=== PATIENT | male | born 1955 | race African-American/Black ===

== ENCOUNTER 2019-03-14 13:28 | Inpatient (IN) | payer OTHER ==
[2019-03-14 15:03] VITALS: BMI 41.5
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
[2019-03-14] MEDS ORDERED: P-EPHED 60MG/TRIPROLIDI 2.5MG TABLET PO PRN (17:57)
[2019-03-14] MEDS ORDERED: MENTHOL/PHENOL 1 EACH UD MM PRN (17:57)
[2019-03-14] MEDS ORDERED: ALBUTEROL SO4 0.083% IH SOL 2.5 MG/3 ML VIAL.NEB. NEB PRN (17:57)
[2019-03-14] MEDS ORDERED: NICOTINE POLACRILEX 2 MG GUM BC PRN (17:57)
[2019-03-14] MEDS ORDERED: MAGNESIUM HYDROX 2400MG/30ML ORAL SUSPENSION 30 ML CUP PO PRN (17:57)
[2019-03-14] MEDS ORDERED: guaiFENesin 200 MG/10 ML 10 ML UNIT-DOSE CUPS PO PRN (17:57)
[2019-03-14] MEDS ORDERED: MAG HYDROX/AL HYDROX/SIMETH 30 ML UNIT-DOSE CUP PO PRN (17:57)
[2019-03-14] MEDS: MONTELUKAST NA 10 MG TABLET PO SCH (21:03)
[2019-03-14] MEDS: CARVEDILOL 3.125 MG TABLET (FP) PO SCH (21:03)
[2019-03-14] MEDS: BUDESONIDE/FORMETEROL FUMARATE 160/4.5 mcg INHALER IH SCH (21:03)
[2019-03-14] MEDS: THIAMINE HCL 100 MG TABLET (FP) PO SCH (21:03)
[2019-03-14] MEDS: ROSUVASTATIN CA 10 MG TABLET (FP) PO SCH (21:04)
[2019-03-14] MEDS: ACETAMINOPHEN 325 MG TABLET (FP) PO PRN (21:05)
[2019-03-14] MEDS ORDERED: MELATONIN 5 MG TABLETS PO PRN (22:00)
[2019-03-14] MEDS ORDERED: ATORVASTATIN CA 40 MG TABLET (FP) PO SCH (22:00)
[2019-03-15] MEDS: LEVOTHYROXINE 200 MCG, LEVOTHYROXINE 50 MCG PO SCH (06:26)
[2019-03-15] MEDS: IBUPROFEN 400 MG TABLET (FP) PO PRN ×2 (06:27→21:02)
[2019-03-15] MEDS ORDERED: LEVOTHYROXINE NA 25 MCG TABLET (FP) PO SCH (07:00)
[2019-03-15] MEDS: PANTOPRAZOLE 40 MG TABLET (FP) PO SCH (09:55)
[2019-03-15] MEDS: amLODIPine BESYLATE 5 MG TABLET (FP) PO SCH (09:55)
[2019-03-15] MEDS: PRENATAL VITAMINS W/ FOLIC ACID TABLET (FP) PO SCH (09:55)
[2019-03-15] MEDS: FUROSEMIDE 40 MG TABLET (FP) PO SCH (09:55)
[2019-03-15] MEDS: BUDESONIDE/FORMETEROL FUMARATE 160/4.5 mcg INHALER IH SCH ×2 (09:55→21:01)
[2019-03-15] MEDS: CARVEDILOL 3.125 MG TABLET (FP) PO SCH ×2 (09:55→21:02)
[2019-03-15] MEDS: ASPIRIN COATED 81 MG TABLET.EC PO SCH (09:55)
[2019-03-15] MEDS: ALLOPURINOL 100 MG TABLET (FP) PO SCH (09:58)
[2019-03-15 10:33] LABS: HEMATOCRIT 37.7 % (35.4-49); HEMOGLOBIN 12.4 GM/dL (11.7-16.9); MCH 28.8 pg (25.7-33.7); MCHC 32.9 g/dl (32.0-35.9); MEAN CELL VOLUME 87.5 fl (80-96); MEAN PLT VOLUME 8.3 fl (7.5-11.1); PLATELET COUNT 280 K/MM3 (134-434); RBC 4.31 M/mm3 (4.00-5.60); RDW 15.5 % (11.9-15.9); WHITE BLOOD COUNT 11.1 K/mm3 (4.0-10.0)
[2019-03-15 10:37] LABS: ALBUMIN 3.5 g/dl (3.4-5.0); BILIRUBIN,TOTAL 0.4 mg/dL (0.2-1); CALCIUM 9.5 mg/dL (8.5-10.1); CREATININE 1.2 mg/dL (0.55-1.3); POTASSIUM 5.2 mmol/L (3.5-5.1); TOT PROT 7.2 g/dl (6.4-8.2)
[2019-03-15] MEDS: FOLIC ACID 1 MG TABLET (FP) PO SCH (10:41)
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
[2019-03-15] MEDS: MONTELUKAST NA 10 MG TABLET PO SCH (21:01)
[2019-03-15] MEDS: THIAMINE HCL 100 MG TABLET (FP) PO SCH (21:01)
[2019-03-15] MEDS: ROSUVASTATIN CA 10 MG TABLET (FP) PO SCH (21:01)
[2019-03-16] MEDS: LEVOTHYROXINE 200 MCG, LEVOTHYROXINE 50 MCG PO SCH (06:22)
[2019-03-16] MEDS: IBUPROFEN 400 MG TABLET (FP) PO PRN ×2 (06:23→21:03)
[2019-03-16] MEDS: amLODIPine BESYLATE 5 MG TABLET (FP) PO SCH (09:42)
[2019-03-16] MEDS: PANTOPRAZOLE 40 MG TABLET (FP) PO SCH (09:42)
[2019-03-16] MEDS: CARVEDILOL 3.125 MG TABLET (FP) PO SCH ×2 (09:42→21:02)
[2019-03-16] MEDS: ALLOPURINOL 100 MG TABLET (FP) PO SCH (09:42)
[2019-03-16] MEDS: BUDESONIDE/FORMETEROL FUMARATE 160/4.5 mcg INHALER IH SCH ×2 (09:42→21:03)
[2019-03-16] MEDS: PRENATAL VITAMINS W/ FOLIC ACID TABLET (FP) PO SCH (09:42)
[2019-03-16] MEDS: FOLIC ACID 1 MG TABLET (FP) PO SCH (09:42)
[2019-03-16] MEDS: ASPIRIN COATED 81 MG TABLET.EC PO SCH (09:42)
[2019-03-16] MEDS: FUROSEMIDE 40 MG TABLET (FP) PO SCH (09:42)
[2019-03-16] MEDS: THIAMINE HCL 100 MG TABLET (FP) PO SCH (21:02)
[2019-03-16] MEDS: MONTELUKAST NA 10 MG TABLET PO SCH (21:02)
[2019-03-16] MEDS: ROSUVASTATIN CA 10 MG TABLET (FP) PO SCH (21:02)
[2019-03-17] MEDS: IBUPROFEN 400 MG TABLET (FP) PO PRN ×2 (06:02→21:11)
[2019-03-17] MEDS: LEVOTHYROXINE 200 MCG, LEVOTHYROXINE 50 MCG PO SCH (06:03)
[2019-03-17] MEDS: amLODIPine BESYLATE 5 MG TABLET (FP) PO SCH (10:01)
[2019-03-17] MEDS: CARVEDILOL 3.125 MG TABLET (FP) PO SCH ×2 (10:01→21:11)
[2019-03-17] MEDS: ASPIRIN COATED 81 MG TABLET.EC PO SCH (10:01)
[2019-03-17] MEDS: ALLOPURINOL 100 MG TABLET (FP) PO SCH (10:01)
[2019-03-17] MEDS: FOLIC ACID 1 MG TABLET (FP) PO SCH (10:01)
[2019-03-17] MEDS: PANTOPRAZOLE 40 MG TABLET (FP) PO SCH (10:01)
[2019-03-17] MEDS: PRENATAL VITAMINS W/ FOLIC ACID TABLET (FP) PO SCH (10:01)
[2019-03-17] MEDS: BUDESONIDE/FORMETEROL FUMARATE 160/4.5 mcg INHALER IH SCH ×2 (10:01→21:13)
[2019-03-17] MEDS: FUROSEMIDE 40 MG TABLET (FP) PO SCH (10:01)
[2019-03-17] MEDS: THIAMINE HCL 100 MG TABLET (FP) PO SCH (21:10)
[2019-03-17] MEDS: ROSUVASTATIN CA 10 MG TABLET (FP) PO SCH (21:12)
[2019-03-17] MEDS: MONTELUKAST NA 10 MG TABLET PO SCH (21:12)
[2019-03-18] MEDS: LEVOTHYROXINE 200 MCG, LEVOTHYROXINE 50 MCG PO SCH (07:39)
[2019-03-18] MEDS: IBUPROFEN 400 MG TABLET (FP) PO PRN ×2 (07:39→21:06)
[2019-03-18] MEDS: BUDESONIDE/FORMETEROL FUMARATE 160/4.5 mcg INHALER IH SCH ×2 (09:47→21:08)
[2019-03-18] MEDS: ALBUTEROL SO4 8 GM HFA INHALER IH PRN (09:48)
[2019-03-18] MEDS: PANTOPRAZOLE 40 MG TABLET (FP) PO SCH (09:49)
[2019-03-18] MEDS: amLODIPine BESYLATE 5 MG TABLET (FP) PO SCH (09:49)
[2019-03-18] MEDS: FUROSEMIDE 40 MG TABLET (FP) PO SCH (09:49)
[2019-03-18] MEDS: CARVEDILOL 3.125 MG TABLET (FP) PO SCH ×2 (09:49→21:06)
[2019-03-18] MEDS: ALLOPURINOL 100 MG TABLET (FP) PO SCH (09:49)
[2019-03-18] MEDS: ASPIRIN COATED 81 MG TABLET.EC PO SCH (09:49)
[2019-03-18] MEDS: PRENATAL VITAMINS W/ FOLIC ACID TABLET (FP) PO SCH (09:49)
[2019-03-18] MEDS: FOLIC ACID 1 MG TABLET (FP) PO SCH (09:50)
[2019-03-18] MEDS: THIAMINE HCL 100 MG TABLET (FP) PO SCH (21:06)
[2019-03-18] MEDS: MONTELUKAST NA 10 MG TABLET PO SCH (21:06)
[2019-03-18] MEDS: ROSUVASTATIN CA 10 MG TABLET (FP) PO SCH (21:06)
[2019-03-19] MEDS: LEVOTHYROXINE 200 MCG, LEVOTHYROXINE 50 MCG PO SCH (06:36)
[2019-03-19] MEDS: IBUPROFEN 400 MG TABLET (FP) PO PRN ×2 (06:36→21:06)
[2019-03-19] MEDS: PANTOPRAZOLE 40 MG TABLET (FP) PO SCH (09:43)
[2019-03-19] MEDS: ALLOPURINOL 100 MG TABLET (FP) PO SCH (09:43)
[2019-03-19] MEDS: CARVEDILOL 3.125 MG TABLET (FP) PO SCH ×2 (09:43→21:05)
[2019-03-19] MEDS: BUDESONIDE/FORMETEROL FUMARATE 160/4.5 mcg INHALER IH SCH ×2 (09:43→21:06)
[2019-03-19] MEDS: FUROSEMIDE 40 MG TABLET (FP) PO SCH (09:43)
[2019-03-19] MEDS: amLODIPine BESYLATE 5 MG TABLET (FP) PO SCH (09:43)
[2019-03-19] MEDS: ASPIRIN COATED 81 MG TABLET.EC PO SCH (09:43)
[2019-03-19] MEDS: PRENATAL VITAMINS W/ FOLIC ACID TABLET (FP) PO SCH (09:44)
[2019-03-19] MEDS: FOLIC ACID 1 MG TABLET (FP) PO SCH (09:46)
[2019-03-19] MEDS: ROSUVASTATIN CA 10 MG TABLET (FP) PO SCH (21:05)
[2019-03-19] MEDS: MONTELUKAST NA 10 MG TABLET PO SCH (21:05)
[2019-03-19] MEDS: THIAMINE HCL 100 MG TABLET (FP) PO SCH (21:05)
[2019-03-19] MEDS: ALBUTEROL SO4 8 GM HFA INHALER IH PRN (21:06)
[2019-03-20] MEDS: IBUPROFEN 400 MG TABLET (FP) PO PRN ×2 (06:18→21:02)
[2019-03-20] MEDS: LEVOTHYROXINE 200 MCG, LEVOTHYROXINE 50 MCG PO SCH (06:18)
[2019-03-20] MEDS ORDERED: ALBUTEROL SO4 0.083% IH SOL 2.5 MG/3 ML VIAL.NEB. NEB PRN (08:56)
[2019-03-20] MEDS: ASPIRIN COATED 81 MG TABLET.EC PO SCH (09:43)
[2019-03-20] MEDS: PRENATAL VITAMINS W/ FOLIC ACID TABLET (FP) PO SCH (09:44)
[2019-03-20] MEDS: amLODIPine BESYLATE 5 MG TABLET (FP) PO SCH (09:44)
[2019-03-20] MEDS: CARVEDILOL 3.125 MG TABLET (FP) PO SCH ×2 (09:44→21:00)
[2019-03-20] MEDS: FUROSEMIDE 40 MG TABLET (FP) PO SCH (09:44)
[2019-03-20] MEDS: ALLOPURINOL 100 MG TABLET (FP) PO SCH (09:44)
[2019-03-20] MEDS: PANTOPRAZOLE 40 MG TABLET (FP) PO SCH (09:44)
[2019-03-20] MEDS: BUDESONIDE/FORMETEROL FUMARATE 160/4.5 mcg INHALER IH SCH ×2 (09:45→21:00)
[2019-03-20] MEDS: FOLIC ACID 1 MG TABLET (FP) PO SCH (09:46)
[2019-03-20] MEDS: ROSUVASTATIN CA 10 MG TABLET (FP) PO SCH (21:00)
[2019-03-20] MEDS: THIAMINE HCL 100 MG TABLET (FP) PO SCH (21:00)
[2019-03-20] MEDS: MONTELUKAST NA 10 MG TABLET PO SCH (21:00)
[2019-03-21] MEDS: LEVOTHYROXINE 200 MCG, LEVOTHYROXINE 50 MCG PO SCH (06:03)
[2019-03-21] MEDS: IBUPROFEN 400 MG TABLET (FP) PO PRN (06:03)
[2019-03-21] MEDS: FOLIC ACID 1 MG TABLET (FP) PO SCH (10:05)
[2019-03-21] MEDS: ALLOPURINOL 100 MG TABLET (FP) PO SCH (10:05)
[2019-03-21] MEDS: BUDESONIDE/FORMETEROL FUMARATE 160/4.5 mcg INHALER IH SCH ×2 (10:05→21:01)
[2019-03-21] MEDS: CARVEDILOL 3.125 MG TABLET (FP) PO SCH ×2 (10:05→21:01)
[2019-03-21] MEDS: PRENATAL VITAMINS W/ FOLIC ACID TABLET (FP) PO SCH (10:05)
[2019-03-21] MEDS: ASPIRIN COATED 81 MG TABLET.EC PO SCH (10:05)
[2019-03-21] MEDS: PANTOPRAZOLE 40 MG TABLET (FP) PO SCH (10:05)
[2019-03-21] MEDS: FUROSEMIDE 40 MG TABLET (FP) PO SCH (10:05)
[2019-03-21] MEDS: amLODIPine BESYLATE 5 MG TABLET (FP) PO SCH (10:05)
--- NOTE | 2019-03-21 13:31 | PN ---
S Progress Note Note: C/O HIP PAIN AND LEG SWELLING. Vital Signs 03/21/19 03/21/19 07:11 10:00 Temperature 98.2 F Pulse Rate 81 79 Respiratory 17 Rate Blood Pressure 127/66 Laboratory Tests 03/15/19 03/15/19 03/15/19 07:30 07:30 07:30 WBC 11.1 H RBC 4.31 Hgb 12.4 Hct 37.7 MCV 87.5 MCH 28.8 MCHC 32.9 RDW 15.5 Plt Count 280 MPV 8.3 Sodium 137 Potassium 5.2 H Chloride 102 Carbon Dioxide 31 Anion Gap 4 L BUN 32 H Creatinine 1.2 Est GFR (CKD-EPI)AfAm 74.14 Est GFR (CKD-EPI)NonAf 63.97 Random Glucose 108 H Calcium 9.5 Total Bilirubin 0.4 AST 45 H ALT 117 H Alkaline Phosphatase 107 Total Protein 7.2 Albumin 3.5 RPR Titer Nonreactive BILATERAL PITTING EDEMA A:CHRONIC LBP HX HIP SX VARICOSE VEINS LEFT LOWER LEG HYPER AND HYPOPIGMENTATION OF LEFT LOWER EXTREMITY BILATERAL LOWER EXTREMITY VENOUS STASIS PLAN: LIDOCAINE PATCH 2% APPLY DIRECTED TO LEFT AND RIGHT HIPS. ELEVATE BOTH LEGS WHILE IN BED
[2019-03-21] MEDS: ACETAMINOPHEN 325 MG TABLET (FP) PO PRN ×2 (14:22→21:02)
[2019-03-21] MEDS: LIDOCAINE 5% TOPICAL PATCH TP SCH (14:22)
[2019-03-21] MEDS ORDERED: LIDOCAINE 5% TOPICAL PATCH TP ONE (14:47)
[2019-03-21] MEDS: THIAMINE HCL 100 MG TABLET (FP) PO SCH (21:01)
[2019-03-21] MEDS: ROSUVASTATIN CA 10 MG TABLET (FP) PO SCH (21:01)
[2019-03-21] MEDS: MONTELUKAST NA 10 MG TABLET PO SCH (21:01)
[2019-03-21] MEDS: ALBUTEROL SO4 8 GM HFA INHALER IH PRN (21:01)
[2019-03-21] MEDS ORDERED: LIDOCAINE PATCH REMOVAL MC ONE ×2 (22:00)
[2019-03-22] MEDS: LEVOTHYROXINE 200 MCG, LEVOTHYROXINE 50 MCG PO SCH (06:02)
[2019-03-22] MEDS: ACETAMINOPHEN 325 MG TABLET (FP) PO PRN (06:03)
[2019-03-22] MEDS: amLODIPine BESYLATE 5 MG TABLET (FP) PO SCH (09:33)
[2019-03-22] MEDS: PRENATAL VITAMINS W/ FOLIC ACID TABLET (FP) PO SCH (09:33)
[2019-03-22] MEDS: FOLIC ACID 1 MG TABLET (FP) PO SCH (09:33)
[2019-03-22] MEDS: ALLOPURINOL 100 MG TABLET (FP) PO SCH (09:33)
[2019-03-22] MEDS: FUROSEMIDE 40 MG TABLET (FP) PO SCH (09:33)
[2019-03-22] MEDS: ASPIRIN COATED 81 MG TABLET.EC PO SCH (09:33)
[2019-03-22] MEDS: PANTOPRAZOLE 40 MG TABLET (FP) PO SCH (09:33)
[2019-03-22] MEDS: CARVEDILOL 3.125 MG TABLET (FP) PO SCH ×2 (09:33→21:04)
[2019-03-22] MEDS: BUDESONIDE/FORMETEROL FUMARATE 160/4.5 mcg INHALER IH SCH ×2 (09:34→21:05)
[2019-03-22] MEDS: LIDOCAINE 5% TOPICAL PATCH TP SCH ×2 (09:35)
[2019-03-22] MEDS: THIAMINE HCL 100 MG TABLET (FP) PO SCH (21:04)
[2019-03-22] MEDS: MONTELUKAST NA 10 MG TABLET PO SCH (21:04)
[2019-03-22] MEDS: ROSUVASTATIN CA 10 MG TABLET (FP) PO SCH (21:04)
[2019-03-22] MEDS: IBUPROFEN 400 MG TABLET (FP) PO PRN (21:04)
[2019-03-22] MEDS: LIDOCAINE PATCH REMOVAL MC SCH (21:06)
[2019-03-22] MEDS: ALBUTEROL SO4 8 GM HFA INHALER IH PRN (21:06)
[2019-03-23] MEDS: LEVOTHYROXINE 200 MCG, LEVOTHYROXINE 50 MCG PO SCH (06:17)
[2019-03-23] MEDS: ACETAMINOPHEN 325 MG TABLET (FP) PO PRN (06:17)
[2019-03-23] MEDS: amLODIPine BESYLATE 5 MG TABLET (FP) PO SCH (10:01)
[2019-03-23] MEDS: FUROSEMIDE 40 MG TABLET (FP) PO SCH (10:01)
[2019-03-23] MEDS: BUDESONIDE/FORMETEROL FUMARATE 160/4.5 mcg INHALER IH SCH ×2 (10:01→21:01)
[2019-03-23] MEDS: ALLOPURINOL 100 MG TABLET (FP) PO SCH (10:01)
[2019-03-23] MEDS: CARVEDILOL 3.125 MG TABLET (FP) PO SCH ×2 (10:01→21:01)
[2019-03-23] MEDS: PANTOPRAZOLE 40 MG TABLET (FP) PO SCH (10:02)
[2019-03-23] MEDS: FOLIC ACID 1 MG TABLET (FP) PO SCH (10:02)
[2019-03-23] MEDS: ASPIRIN COATED 81 MG TABLET.EC PO SCH (10:02)
[2019-03-23] MEDS: PRENATAL VITAMINS W/ FOLIC ACID TABLET (FP) PO SCH (10:02)
[2019-03-23] MEDS: LIDOCAINE 5% TOPICAL PATCH TP SCH ×2 (10:02→10:03)
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
[2019-03-23] MEDS: ROSUVASTATIN CA 10 MG TABLET (FP) PO SCH (21:01)
[2019-03-23] MEDS: MONTELUKAST NA 10 MG TABLET PO SCH (21:01)
[2019-03-23] MEDS: THIAMINE HCL 100 MG TABLET (FP) PO SCH (21:01)
[2019-03-23] MEDS: LIDOCAINE PATCH REMOVAL MC SCH (21:02)
[2019-03-23] MEDS: IBUPROFEN 400 MG TABLET (FP) PO PRN (21:03)
[2019-03-24] MEDS: IBUPROFEN 400 MG TABLET (FP) PO PRN (05:59)
[2019-03-24] MEDS: LEVOTHYROXINE 200 MCG, LEVOTHYROXINE 50 MCG PO SCH (06:00)
[2019-03-24] MEDS: ALLOPURINOL 100 MG TABLET (FP) PO SCH (09:35)
[2019-03-24] MEDS: FUROSEMIDE 40 MG TABLET (FP) PO SCH (09:39)
[2019-03-24] MEDS: ASPIRIN COATED 81 MG TABLET.EC PO SCH (09:39)
[2019-03-24] MEDS: CARVEDILOL 3.125 MG TABLET (FP) PO SCH ×2 (09:39→22:20)
[2019-03-24] MEDS: PRENATAL VITAMINS W/ FOLIC ACID TABLET (FP) PO SCH (09:39)
[2019-03-24] MEDS: PANTOPRAZOLE 40 MG TABLET (FP) PO SCH (09:40)
[2019-03-24] MEDS: LIDOCAINE 5% TOPICAL PATCH TP SCH ×2 (09:41→10:48)
[2019-03-24] MEDS: FOLIC ACID 1 MG TABLET (FP) PO SCH (09:42)
[2019-03-24] MEDS: SERTRALINE HCL 25 MG TABLET (FP) PO SCH (09:46)
[2019-03-24] MEDS: amLODIPine BESYLATE 5 MG TABLET (FP) PO SCH (10:49)
[2019-03-24] MEDS: BUDESONIDE/FORMETEROL FUMARATE 160/4.5 mcg INHALER IH SCH ×2 (10:49→22:21)
[2019-03-24] MEDS ORDERED: ALBUTEROL SO4 0.083% IH SOL 2.5 MG/3 ML VIAL.NEB. NEB PRN (13:24)
[2019-03-24] MEDS: MONTELUKAST NA 10 MG TABLET PO SCH (22:21)
[2019-03-24] MEDS: THIAMINE HCL 100 MG TABLET (FP) PO SCH (22:21)
[2019-03-24] MEDS: ROSUVASTATIN CA 10 MG TABLET (FP) PO SCH (22:21)
[2019-03-24] MEDS: LIDOCAINE PATCH REMOVAL MC SCH (22:21)
[2019-03-25] MEDS: IBUPROFEN 400 MG TABLET (FP) PO PRN ×2 (01:41→21:10)
[2019-03-25] MEDS: hydrOXYzine PAMOATE 25 MG CAPSULE (FP) PO PRN (01:41)
[2019-03-25] MEDS ORDERED: LEVOTHYROXINE NA 100 MCG TABLET (FP) ONE (06:52)
[2019-03-25] MEDS ORDERED: LEVOTHYROXINE NA 25 MCG TABLET (FP) ONE (06:52)
[2019-03-25] MEDS: LEVOTHYROXINE 200 MCG, LEVOTHYROXINE 50 MCG PO SCH (06:57)
[2019-03-25] MEDS: ASPIRIN COATED 81 MG TABLET.EC PO SCH (09:44)
[2019-03-25] MEDS: amLODIPine BESYLATE 5 MG TABLET (FP) PO SCH (09:44)
[2019-03-25] MEDS: CARVEDILOL 3.125 MG TABLET (FP) PO SCH ×2 (09:44→21:09)
[2019-03-25] MEDS: BUDESONIDE/FORMETEROL FUMARATE 160/4.5 mcg INHALER IH SCH ×2 (09:44→21:09)
[2019-03-25] MEDS: PANTOPRAZOLE 40 MG TABLET (FP) PO SCH (09:44)
[2019-03-25] MEDS: SERTRALINE HCL 25 MG TABLET (FP) PO SCH (09:44)
[2019-03-25] MEDS: FUROSEMIDE 40 MG TABLET (FP) PO SCH (09:44)
[2019-03-25] MEDS: PRENATAL VITAMINS W/ FOLIC ACID TABLET (FP) PO SCH (09:44)
[2019-03-25] MEDS: FOLIC ACID 1 MG TABLET (FP) PO SCH (09:45)
[2019-03-25] MEDS: ALLOPURINOL 100 MG TABLET (FP) PO SCH (09:45)
[2019-03-25] MEDS: ACETAMINOPHEN 325 MG TABLET (FP) PO PRN (09:46)
[2019-03-25] MEDS: LIDOCAINE 5% TOPICAL PATCH TP SCH ×2 (09:48)
[2019-03-25] MEDS: MONTELUKAST NA 10 MG TABLET PO SCH (21:09)
[2019-03-25] MEDS: THIAMINE HCL 100 MG TABLET (FP) PO SCH (21:09)
[2019-03-25] MEDS: ROSUVASTATIN CA 10 MG TABLET (FP) PO SCH (21:09)
[2019-03-25] MEDS: LIDOCAINE PATCH REMOVAL MC SCH (21:11)
[2019-03-26] MEDS ORDERED: PT OWN MED DRAWER 7, Y5N ONE (02:54)
[2019-03-26] MEDS: LEVOTHYROXINE 200 MCG, LEVOTHYROXINE 50 MCG PO SCH (06:17)
[2019-03-26] MEDS: ALLOPURINOL 100 MG TABLET (FP) PO SCH (10:01)
[2019-03-26] MEDS: LIDOCAINE 5% TOPICAL PATCH TP SCH ×2 (10:01→10:02)
[2019-03-26] MEDS: amLODIPine BESYLATE 5 MG TABLET (FP) PO SCH (10:01)
[2019-03-26] MEDS: ASPIRIN COATED 81 MG TABLET.EC PO SCH (10:01)
[2019-03-26] MEDS: FUROSEMIDE 40 MG TABLET (FP) PO SCH (10:01)
[2019-03-26] MEDS: PRENATAL VITAMINS W/ FOLIC ACID TABLET (FP) PO SCH (10:01)
[2019-03-26] MEDS: CARVEDILOL 3.125 MG TABLET (FP) PO SCH ×2 (10:01→21:31)
[2019-03-26] MEDS: PANTOPRAZOLE 40 MG TABLET (FP) PO SCH (10:01)
[2019-03-26] MEDS: SERTRALINE HCL 25 MG TABLET (FP) PO SCH (10:01)
[2019-03-26] MEDS: FOLIC ACID 1 MG TABLET (FP) PO SCH (10:02)
[2019-03-26] MEDS: BUDESONIDE/FORMETEROL FUMARATE 160/4.5 mcg INHALER IH SCH ×2 (10:02→21:32)
[2019-03-26] MEDS: ACETAMINOPHEN 325 MG TABLET (FP) PO PRN (10:03)
[2019-03-26] MEDS: MONTELUKAST NA 10 MG TABLET PO SCH (21:31)
[2019-03-26] MEDS: ROSUVASTATIN CA 10 MG TABLET (FP) PO SCH (21:31)
[2019-03-26] MEDS: THIAMINE HCL 100 MG TABLET (FP) PO SCH (21:32)
[2019-03-26] MEDS: IBUPROFEN 400 MG TABLET (FP) PO PRN (21:33)
[2019-03-26] MEDS: LIDOCAINE PATCH REMOVAL MC SCH (22:09)
[2019-03-27] MEDS: LEVOTHYROXINE 200 MCG, LEVOTHYROXINE 50 MCG PO SCH (06:06)
[2019-03-27] MEDS: IBUPROFEN 400 MG TABLET (FP) PO PRN ×2 (06:06→21:01)
[2019-03-27] MEDS: ALBUTEROL SO4 8 GM HFA INHALER IH PRN (10:03)
[2019-03-27] MEDS: LIDOCAINE 5% TOPICAL PATCH TP SCH ×2 (10:03→10:06)
[2019-03-27] MEDS: BUDESONIDE/FORMETEROL FUMARATE 160/4.5 mcg INHALER IH SCH ×2 (10:04→21:00)
[2019-03-27] MEDS: amLODIPine BESYLATE 5 MG TABLET (FP) PO SCH (10:04)
[2019-03-27] MEDS: ALLOPURINOL 100 MG TABLET (FP) PO SCH (10:04)
[2019-03-27] MEDS: ASPIRIN COATED 81 MG TABLET.EC PO SCH (10:05)
[2019-03-27] MEDS: PANTOPRAZOLE 40 MG TABLET (FP) PO SCH (10:05)
[2019-03-27] MEDS: CARVEDILOL 3.125 MG TABLET (FP) PO SCH ×2 (10:05→21:00)
[2019-03-27] MEDS: FUROSEMIDE 40 MG TABLET (FP) PO SCH (10:05)
[2019-03-27] MEDS: SERTRALINE HCL 25 MG TABLET (FP) PO SCH (10:05)
[2019-03-27] MEDS: PRENATAL VITAMINS W/ FOLIC ACID TABLET (FP) PO SCH (10:05)
[2019-03-27] MEDS: FOLIC ACID 1 MG TABLET (FP) PO SCH (14:17)
[2019-03-27] MEDS: THIAMINE HCL 100 MG TABLET (FP) PO SCH (21:00)
[2019-03-27] MEDS: ROSUVASTATIN CA 10 MG TABLET (FP) PO SCH (21:00)
[2019-03-27] MEDS: MONTELUKAST NA 10 MG TABLET PO SCH (21:00)
[2019-03-27] MEDS: LIDOCAINE PATCH REMOVAL MC SCH (21:01)
[2019-03-28] MEDS ORDERED: LEVOTHYROXINE NA 100 MCG TABLET (FP) ONE (05:47)
[2019-03-28] MEDS ORDERED: LEVOTHYROXINE NA 25 MCG TABLET (FP) ONE (05:47)
[2019-03-28] MEDS: IBUPROFEN 400 MG TABLET (FP) PO PRN ×2 (06:04→21:00)
[2019-03-28] MEDS: LEVOTHYROXINE 200 MCG, LEVOTHYROXINE 50 MCG PO SCH (06:45)
[2019-03-28] MEDS: CARVEDILOL 3.125 MG TABLET (FP) PO SCH ×2 (09:45→21:00)
[2019-03-28] MEDS: ASPIRIN COATED 81 MG TABLET.EC PO SCH (09:45)
[2019-03-28] MEDS: ALLOPURINOL 100 MG TABLET (FP) PO SCH (09:45)
[2019-03-28] MEDS: amLODIPine BESYLATE 5 MG TABLET (FP) PO SCH (09:45)
[2019-03-28] MEDS: PANTOPRAZOLE 40 MG TABLET (FP) PO SCH (09:46)
[2019-03-28] MEDS: FUROSEMIDE 40 MG TABLET (FP) PO SCH (09:46)
[2019-03-28] MEDS: FOLIC ACID 1 MG TABLET (FP) PO SCH (09:46)
[2019-03-28] MEDS: LIDOCAINE 5% TOPICAL PATCH TP SCH ×2 (09:47→09:48)
[2019-03-28] MEDS: SERTRALINE HCL 25 MG TABLET (FP) PO SCH (11:07)
[2019-03-28] MEDS: PRENATAL VITAMINS W/ FOLIC ACID TABLET (FP) PO SCH (11:07)
[2019-03-28] MEDS: BUDESONIDE/FORMETEROL FUMARATE 160/4.5 mcg INHALER IH SCH ×2 (11:07→21:01)
[2019-03-28] MEDS: ACETAMINOPHEN 325 MG TABLET (FP) PO PRN (14:13)
[2019-03-28] MEDS: ROSUVASTATIN CA 10 MG TABLET (FP) PO SCH (21:00)
[2019-03-28] MEDS: MONTELUKAST NA 10 MG TABLET PO SCH (21:00)
[2019-03-28] MEDS: THIAMINE HCL 100 MG TABLET (FP) PO SCH (21:00)
[2019-03-28] MEDS: LIDOCAINE PATCH REMOVAL MC SCH (21:01)
[2019-03-29] MEDS: IBUPROFEN 400 MG TABLET (FP) PO PRN ×2 (06:19→21:01)
[2019-03-29] MEDS: LEVOTHYROXINE 200 MCG, LEVOTHYROXINE 50 MCG PO SCH (06:20)
[2019-03-29] MEDS: MAGNESIUM CITRATE 300 ML BOTTLE PO PRN (06:21)
[2019-03-29] MEDS: SERTRALINE HCL 25 MG TABLET (FP) PO SCH (09:44)
[2019-03-29] MEDS: ASPIRIN COATED 81 MG TABLET.EC PO SCH (09:44)
[2019-03-29] MEDS: FUROSEMIDE 40 MG TABLET (FP) PO SCH (09:44)
[2019-03-29] MEDS: PANTOPRAZOLE 40 MG TABLET (FP) PO SCH (09:44)
[2019-03-29] MEDS: BUDESONIDE/FORMETEROL FUMARATE 160/4.5 mcg INHALER IH SCH ×2 (09:44→21:02)
[2019-03-29] MEDS: ALLOPURINOL 100 MG TABLET (FP) PO SCH (09:44)
[2019-03-29] MEDS: PRENATAL VITAMINS W/ FOLIC ACID TABLET (FP) PO SCH (09:44)
[2019-03-29] MEDS: CARVEDILOL 3.125 MG TABLET (FP) PO SCH ×2 (09:44→21:01)
[2019-03-29] MEDS: amLODIPine BESYLATE 5 MG TABLET (FP) PO SCH (09:44)
[2019-03-29] MEDS: FOLIC ACID 1 MG TABLET (FP) PO SCH (09:45)
[2019-03-29] MEDS: LIDOCAINE 5% TOPICAL PATCH TP SCH ×2 (09:47→09:48)
[2019-03-29] MEDS: ROSUVASTATIN CA 10 MG TABLET (FP) PO SCH (21:01)
[2019-03-29] MEDS: MONTELUKAST NA 10 MG TABLET PO SCH (21:01)
[2019-03-29] MEDS: THIAMINE HCL 100 MG TABLET (FP) PO SCH (21:01)
[2019-03-29] MEDS: LIDOCAINE PATCH REMOVAL MC SCH (21:02)
[2019-03-30] MEDS ORDERED: LEVOTHYROXINE NA 25 MCG TABLET (FP) ONE (06:24)
[2019-03-30] MEDS ORDERED: LEVOTHYROXINE NA 100 MCG TABLET (FP) ONE (06:24)
[2019-03-30] MEDS: IBUPROFEN 400 MG TABLET (FP) PO PRN ×2 (06:26→21:12)
[2019-03-30] MEDS: LEVOTHYROXINE 200 MCG, LEVOTHYROXINE 50 MCG PO SCH (06:48)
[2019-03-30] MEDS: amLODIPine BESYLATE 5 MG TABLET (FP) PO SCH (09:36)
[2019-03-30] MEDS: PRENATAL VITAMINS W/ FOLIC ACID TABLET (FP) PO SCH (09:36)
[2019-03-30] MEDS: PANTOPRAZOLE 40 MG TABLET (FP) PO SCH (09:36)
[2019-03-30] MEDS: BUDESONIDE/FORMETEROL FUMARATE 160/4.5 mcg INHALER IH SCH ×2 (09:37→21:13)
[2019-03-30] MEDS: SERTRALINE HCL 25 MG TABLET (FP) PO SCH (09:37)
[2019-03-30] MEDS: ASPIRIN COATED 81 MG TABLET.EC PO SCH (09:37)
[2019-03-30] MEDS: ALLOPURINOL 100 MG TABLET (FP) PO SCH (09:37)
[2019-03-30] MEDS: CARVEDILOL 3.125 MG TABLET (FP) PO SCH ×2 (09:37→21:12)
[2019-03-30] MEDS: FUROSEMIDE 40 MG TABLET (FP) PO SCH (09:37)
[2019-03-30] MEDS: ALBUTEROL SO4 8 GM HFA INHALER IH PRN (09:38)
[2019-03-30] MEDS: LIDOCAINE 5% TOPICAL PATCH TP SCH ×3 (10:17→10:46)
[2019-03-30] MEDS: FOLIC ACID 1 MG TABLET (FP) PO SCH (10:17)
[2019-03-30] MEDS: MONTELUKAST NA 10 MG TABLET PO SCH (21:12)
[2019-03-30] MEDS: THIAMINE HCL 100 MG TABLET (FP) PO SCH (21:12)
[2019-03-30] MEDS: ROSUVASTATIN CA 10 MG TABLET (FP) PO SCH (21:12)
[2019-03-30] MEDS: LIDOCAINE PATCH REMOVAL MC SCH (21:15)
[2019-03-31] MEDS: LEVOTHYROXINE 200 MCG, LEVOTHYROXINE 50 MCG PO SCH (06:48)
[2019-03-31] MEDS: IBUPROFEN 400 MG TABLET (FP) PO PRN ×2 (06:49→16:59)
[2019-03-31] MEDS: SERTRALINE HCL 25 MG TABLET (FP) PO SCH (09:54)
[2019-03-31] MEDS: ALLOPURINOL 100 MG TABLET (FP) PO SCH (09:54)
[2019-03-31] MEDS: PANTOPRAZOLE 40 MG TABLET (FP) PO SCH (09:54)
[2019-03-31] MEDS: BUDESONIDE/FORMETEROL FUMARATE 160/4.5 mcg INHALER IH SCH ×2 (09:54→21:02)
[2019-03-31] MEDS: ASPIRIN COATED 81 MG TABLET.EC PO SCH (09:54)
[2019-03-31] MEDS: amLODIPine BESYLATE 5 MG TABLET (FP) PO SCH (09:54)
[2019-03-31] MEDS: CARVEDILOL 3.125 MG TABLET (FP) PO SCH ×2 (09:54→21:00)
[2019-03-31] MEDS: FUROSEMIDE 40 MG TABLET (FP) PO SCH (09:54)
[2019-03-31] MEDS: PRENATAL VITAMINS W/ FOLIC ACID TABLET (FP) PO SCH (09:54)
[2019-03-31] MEDS: FOLIC ACID 1 MG TABLET (FP) PO SCH (09:55)
[2019-03-31] MEDS: LIDOCAINE 5% TOPICAL PATCH TP SCH ×2 (09:56)
[2019-03-31] MEDS: ROSUVASTATIN CA 10 MG TABLET (FP) PO SCH (21:00)
[2019-03-31] MEDS: MONTELUKAST NA 10 MG TABLET PO SCH (21:00)
[2019-03-31] MEDS: THIAMINE HCL 100 MG TABLET (FP) PO SCH (21:01)
[2019-03-31] MEDS: LIDOCAINE PATCH REMOVAL MC SCH (21:02)
[2019-04-01] MEDS ORDERED: LEVOTHYROXINE NA 100 MCG TABLET (FP) ONE (05:42)
[2019-04-01] MEDS ORDERED: LEVOTHYROXINE NA 25 MCG TABLET (FP) ONE (05:42)
[2019-04-01] MEDS: LEVOTHYROXINE 200 MCG, LEVOTHYROXINE 50 MCG PO SCH (06:29)
[2019-04-01] MEDS: IBUPROFEN 400 MG TABLET (FP) PO PRN ×2 (06:30→21:04)
[2019-04-01] MEDS: SERTRALINE HCL 25 MG TABLET (FP) PO SCH (09:36)
[2019-04-01] MEDS: PRENATAL VITAMINS W/ FOLIC ACID TABLET (FP) PO SCH (09:36)
[2019-04-01] MEDS: amLODIPine BESYLATE 5 MG TABLET (FP) PO SCH (09:36)
[2019-04-01] MEDS: CARVEDILOL 3.125 MG TABLET (FP) PO SCH ×2 (09:36→21:03)
[2019-04-01] MEDS: FOLIC ACID 1 MG TABLET (FP) PO SCH (09:36)
[2019-04-01] MEDS: BUDESONIDE/FORMETEROL FUMARATE 160/4.5 mcg INHALER IH SCH ×2 (09:36→21:05)
[2019-04-01] MEDS: ASPIRIN COATED 81 MG TABLET.EC PO SCH (09:36)
[2019-04-01] MEDS: ALLOPURINOL 100 MG TABLET (FP) PO SCH (09:36)
[2019-04-01] MEDS: PANTOPRAZOLE 40 MG TABLET (FP) PO SCH (09:36)
[2019-04-01] MEDS: FUROSEMIDE 40 MG TABLET (FP) PO SCH (09:36)
[2019-04-01] MEDS: LIDOCAINE 5% TOPICAL PATCH TP SCH ×2 (09:37)
[2019-04-01] MEDS: ROSUVASTATIN CA 10 MG TABLET (FP) PO SCH (21:03)
[2019-04-01] MEDS: MONTELUKAST NA 10 MG TABLET PO SCH (21:03)
[2019-04-01] MEDS: THIAMINE HCL 100 MG TABLET (FP) PO SCH (21:04)
[2019-04-01] MEDS: ALBUTEROL SO4 8 GM HFA INHALER IH PRN (21:04)
[2019-04-01] MEDS: LIDOCAINE PATCH REMOVAL MC SCH (21:05)
[2019-04-02] MEDS: IBUPROFEN 400 MG TABLET (FP) PO PRN ×2 (06:25→21:03)
[2019-04-02] MEDS: LEVOTHYROXINE 200 MCG, LEVOTHYROXINE 50 MCG PO SCH (06:25)
[2019-04-02] MEDS: ASPIRIN COATED 81 MG TABLET.EC PO SCH (09:38)
[2019-04-02] MEDS: SERTRALINE HCL 25 MG TABLET (FP) PO SCH (09:38)
[2019-04-02] MEDS: ALLOPURINOL 100 MG TABLET (FP) PO SCH (09:38)
[2019-04-02] MEDS: PRENATAL VITAMINS W/ FOLIC ACID TABLET (FP) PO SCH (09:39)
[2019-04-02] MEDS: PANTOPRAZOLE 40 MG TABLET (FP) PO SCH (09:39)
[2019-04-02] MEDS: amLODIPine BESYLATE 5 MG TABLET (FP) PO SCH (09:39)
[2019-04-02] MEDS: BUDESONIDE/FORMETEROL FUMARATE 160/4.5 mcg INHALER IH SCH ×2 (09:39→21:04)
[2019-04-02] MEDS: FOLIC ACID 1 MG TABLET (FP) PO SCH (09:39)
[2019-04-02] MEDS: FUROSEMIDE 40 MG TABLET (FP) PO SCH (09:39)
[2019-04-02] MEDS: LIDOCAINE 5% TOPICAL PATCH TP SCH ×2 (09:39)
[2019-04-02] MEDS: CARVEDILOL 3.125 MG TABLET (FP) PO SCH ×2 (09:39→21:03)
[2019-04-02] MEDS: ROSUVASTATIN CA 10 MG TABLET (FP) PO SCH (21:03)
[2019-04-02] MEDS: MONTELUKAST NA 10 MG TABLET PO SCH (21:03)
[2019-04-02] MEDS: THIAMINE HCL 100 MG TABLET (FP) PO SCH (21:03)
[2019-04-02] MEDS: LIDOCAINE PATCH REMOVAL MC SCH (21:04)
[2019-04-03] MEDS: LEVOTHYROXINE 200 MCG, LEVOTHYROXINE 50 MCG PO SCH (06:14)
[2019-04-03] MEDS: IBUPROFEN 400 MG TABLET (FP) PO PRN ×2 (06:15→21:03)
[2019-04-03] MEDS: LIDOCAINE 5% TOPICAL PATCH TP SCH ×2 (09:46)
[2019-04-03] MEDS: BUDESONIDE/FORMETEROL FUMARATE 160/4.5 mcg INHALER IH SCH ×2 (09:46→21:04)
[2019-04-03] MEDS: FUROSEMIDE 40 MG TABLET (FP) PO SCH (09:46)
[2019-04-03] MEDS: PRENATAL VITAMINS W/ FOLIC ACID TABLET (FP) PO SCH (09:47)
[2019-04-03] MEDS: ASPIRIN COATED 81 MG TABLET.EC PO SCH (09:47)
[2019-04-03] MEDS: amLODIPine BESYLATE 5 MG TABLET (FP) PO SCH (09:47)
[2019-04-03] MEDS: CARVEDILOL 3.125 MG TABLET (FP) PO SCH ×2 (09:47→21:03)
[2019-04-03] MEDS: PANTOPRAZOLE 40 MG TABLET (FP) PO SCH (09:47)
[2019-04-03] MEDS: ALLOPURINOL 100 MG TABLET (FP) PO SCH (09:47)
[2019-04-03] MEDS: SERTRALINE HCL 25 MG TABLET (FP) PO SCH (09:49)
[2019-04-03] MEDS: FOLIC ACID 1 MG TABLET (FP) PO SCH (09:51)
[2019-04-03] MEDS: MONTELUKAST NA 10 MG TABLET PO SCH (21:03)
[2019-04-03] MEDS: THIAMINE HCL 100 MG TABLET (FP) PO SCH (21:03)
[2019-04-03] MEDS: LIDOCAINE PATCH REMOVAL MC SCH (21:04)
[2019-04-03] MEDS: ROSUVASTATIN CA 10 MG TABLET (FP) PO SCH (21:05)
[2019-04-04] MEDS: IBUPROFEN 400 MG TABLET (FP) PO PRN (06:15)
[2019-04-04] MEDS: LEVOTHYROXINE 200 MCG, LEVOTHYROXINE 50 MCG PO SCH (06:15)
[2019-04-04] MEDS: CARVEDILOL 3.125 MG TABLET (FP) PO SCH ×2 (09:52→21:00)
[2019-04-04] MEDS: ASPIRIN COATED 81 MG TABLET.EC PO SCH (09:52)
[2019-04-04] MEDS: ALLOPURINOL 100 MG TABLET (FP) PO SCH (09:52)
[2019-04-04] MEDS: PANTOPRAZOLE 40 MG TABLET (FP) PO SCH (09:52)
[2019-04-04] MEDS: amLODIPine BESYLATE 5 MG TABLET (FP) PO SCH (09:52)
[2019-04-04] MEDS: BUDESONIDE/FORMETEROL FUMARATE 160/4.5 mcg INHALER IH SCH ×2 (09:52→21:01)
[2019-04-04] MEDS: SERTRALINE HCL 25 MG TABLET (FP) PO SCH (09:52)
[2019-04-04] MEDS: PRENATAL VITAMINS W/ FOLIC ACID TABLET (FP) PO SCH (09:52)
[2019-04-04] MEDS: FUROSEMIDE 40 MG TABLET (FP) PO SCH (09:52)
[2019-04-04] MEDS: LIDOCAINE 5% TOPICAL PATCH TP SCH ×2 (09:53→09:54)
[2019-04-04] MEDS: FOLIC ACID 1 MG TABLET (FP) PO SCH (09:53)
[2019-04-04] MEDS: ROSUVASTATIN CA 10 MG TABLET (FP) PO SCH (21:00)
[2019-04-04] MEDS: MONTELUKAST NA 10 MG TABLET PO SCH (21:00)
[2019-04-04] MEDS: LIDOCAINE PATCH REMOVAL MC SCH (21:01)
[2019-04-04] MEDS: THIAMINE HCL 100 MG TABLET (FP) PO SCH (21:01)
[2019-04-05] MEDS: IBUPROFEN 400 MG TABLET (FP) PO PRN ×2 (06:15→21:03)
[2019-04-05] MEDS: LEVOTHYROXINE 200 MCG, LEVOTHYROXINE 50 MCG PO SCH (06:16)
[2019-04-05] MEDS: ASPIRIN COATED 81 MG TABLET.EC PO SCH (09:31)
[2019-04-05] MEDS: FUROSEMIDE 40 MG TABLET (FP) PO SCH (09:31)
[2019-04-05] MEDS: PRENATAL VITAMINS W/ FOLIC ACID TABLET (FP) PO SCH (09:31)
[2019-04-05] MEDS: FOLIC ACID 1 MG TABLET (FP) PO SCH (09:31)
[2019-04-05] MEDS: SERTRALINE HCL 25 MG TABLET (FP) PO SCH (09:31)
[2019-04-05] MEDS: PANTOPRAZOLE 40 MG TABLET (FP) PO SCH (09:31)
[2019-04-05] MEDS: CARVEDILOL 3.125 MG TABLET (FP) PO SCH ×2 (09:31→21:02)
[2019-04-05] MEDS: ALLOPURINOL 100 MG TABLET (FP) PO SCH (09:31)
[2019-04-05] MEDS: amLODIPine BESYLATE 5 MG TABLET (FP) PO SCH (09:31)
[2019-04-05] MEDS: BUDESONIDE/FORMETEROL FUMARATE 160/4.5 mcg INHALER IH SCH ×2 (09:32→21:04)
[2019-04-05] MEDS: LIDOCAINE 5% TOPICAL PATCH TP SCH ×2 (09:34)
[2019-04-05] MEDS: ROSUVASTATIN CA 10 MG TABLET (FP) PO SCH (21:02)
[2019-04-05] MEDS: MONTELUKAST NA 10 MG TABLET PO SCH (21:02)
[2019-04-05] MEDS: THIAMINE HCL 100 MG TABLET (FP) PO SCH (21:02)
[2019-04-05] MEDS: LIDOCAINE PATCH REMOVAL MC SCH (21:04)
[2019-04-06] MEDS: LEVOTHYROXINE 200 MCG, LEVOTHYROXINE 50 MCG PO SCH (06:53)
[2019-04-06] MEDS: IBUPROFEN 400 MG TABLET (FP) PO PRN ×2 (06:53→21:06)
[2019-04-06] MEDS: ASPIRIN COATED 81 MG TABLET.EC PO SCH (09:48)
[2019-04-06] MEDS: amLODIPine BESYLATE 5 MG TABLET (FP) PO SCH (09:48)
[2019-04-06] MEDS: PRENATAL VITAMINS W/ FOLIC ACID TABLET (FP) PO SCH (09:48)
[2019-04-06] MEDS: PANTOPRAZOLE 40 MG TABLET (FP) PO SCH (09:48)
[2019-04-06] MEDS: BUDESONIDE/FORMETEROL FUMARATE 160/4.5 mcg INHALER IH SCH ×2 (09:48→22:14)
[2019-04-06] MEDS: ALLOPURINOL 100 MG TABLET (FP) PO SCH (09:48)
[2019-04-06] MEDS: FOLIC ACID 1 MG TABLET (FP) PO SCH (09:49)
[2019-04-06] MEDS: CARVEDILOL 3.125 MG TABLET (FP) PO SCH ×2 (09:49→21:05)
[2019-04-06] MEDS: FUROSEMIDE 40 MG TABLET (FP) PO SCH (09:49)
[2019-04-06] MEDS: SERTRALINE HCL 25 MG TABLET (FP) PO SCH (09:49)
[2019-04-06] MEDS: LIDOCAINE 5% TOPICAL PATCH TP SCH ×2 (09:50)
[2019-04-06] MEDS: MAGNESIUM CITRATE 300 ML BOTTLE PO PRN (12:46)
[2019-04-06] MEDS: MONTELUKAST NA 10 MG TABLET PO SCH (21:05)
[2019-04-06] MEDS: ROSUVASTATIN CA 10 MG TABLET (FP) PO SCH (21:05)
[2019-04-06] MEDS: THIAMINE HCL 100 MG TABLET (FP) PO SCH (21:06)
[2019-04-06] MEDS: LIDOCAINE PATCH REMOVAL MC SCH (21:08)
[2019-04-07] MEDS: LEVOTHYROXINE 200 MCG, LEVOTHYROXINE 50 MCG PO SCH (06:34)
[2019-04-07] MEDS: IBUPROFEN 400 MG TABLET (FP) PO PRN (06:34)
[2019-04-07] MEDS: PRENATAL VITAMINS W/ FOLIC ACID TABLET (FP) PO SCH (09:44)
[2019-04-07] MEDS: BUDESONIDE/FORMETEROL FUMARATE 160/4.5 mcg INHALER IH SCH ×2 (09:44→21:04)
[2019-04-07] MEDS: PANTOPRAZOLE 40 MG TABLET (FP) PO SCH (09:45)
[2019-04-07] MEDS: SERTRALINE HCL 25 MG TABLET (FP) PO SCH (09:45)
[2019-04-07] MEDS: ALLOPURINOL 100 MG TABLET (FP) PO SCH (09:45)
[2019-04-07] MEDS: CARVEDILOL 3.125 MG TABLET (FP) PO SCH ×2 (09:45→21:02)
[2019-04-07] MEDS: ASPIRIN COATED 81 MG TABLET.EC PO SCH (09:45)
[2019-04-07] MEDS: FOLIC ACID 1 MG TABLET (FP) PO SCH (09:45)
[2019-04-07] MEDS: FUROSEMIDE 40 MG TABLET (FP) PO SCH (09:45)
[2019-04-07] MEDS: amLODIPine BESYLATE 5 MG TABLET (FP) PO SCH (09:45)
[2019-04-07] MEDS: LIDOCAINE 5% TOPICAL PATCH TP SCH ×2 (09:45)
[2019-04-07] MEDS: METHOCARBAMOL 500 MG TABLET PO PRN ×2 (09:47→21:03)
--- NOTE | 2019-04-07 11:13 | PN ---
[facility] Progress Note Note: C/O CHRONIC HIP JOINT PAIN AND WANTS PAIN MEDICATION RE-EVALUATION. PT WITH HX HIP SX. PLAN:Vital Signs - 24 hr 04/06/19 04/06/19 04/07/19 11:56 20:58 00:30 Temperature Pulse Rate 83 80 Respiratory 18 Rate Blood Pressure 132/74 135/67 04/07/19 04/07/19 04/07/19 03:30 06:34 10:00 Temperature 97.7 F Pulse Rate 71 81 Respiratory 18 18 Rate Blood Pressure 141/74 123/68 PLAN:INCREASE MOTRIN 600 MG PO Q6H PRN ROBAXIN 500 MG PO TID PRN
[2019-04-07] MEDS: IBUPROFEN 600 MG TABLET (FP) PO PRN (21:02)
[2019-04-07] MEDS: ROSUVASTATIN CA 10 MG TABLET (FP) PO SCH (21:02)
[2019-04-07] MEDS: MONTELUKAST NA 10 MG TABLET PO SCH (21:02)
[2019-04-07] MEDS: THIAMINE HCL 100 MG TABLET (FP) PO SCH (21:04)
[2019-04-07] MEDS: LIDOCAINE PATCH REMOVAL MC SCH (21:04)
[2019-04-08] MEDS: IBUPROFEN 600 MG TABLET (FP) PO PRN ×2 (06:22→21:04)
[2019-04-08] MEDS: hydrOXYzine PAMOATE 25 MG CAPSULE (FP) PO PRN (06:22)
[2019-04-08] MEDS: LEVOTHYROXINE 200 MCG, LEVOTHYROXINE 50 MCG PO SCH (06:27)
[2019-04-08] MEDS: METHOCARBAMOL 500 MG TABLET PO PRN ×2 (06:27→21:03)
[2019-04-08] MEDS: CARVEDILOL 3.125 MG TABLET (FP) PO SCH ×2 (09:44→21:02)
[2019-04-08] MEDS: ALLOPURINOL 100 MG TABLET (FP) PO SCH (09:44)
[2019-04-08] MEDS: FUROSEMIDE 40 MG TABLET (FP) PO SCH (09:44)
[2019-04-08] MEDS: PANTOPRAZOLE 40 MG TABLET (FP) PO SCH (09:44)
[2019-04-08] MEDS: SERTRALINE HCL 25 MG TABLET (FP) PO SCH (09:44)
[2019-04-08] MEDS: PRENATAL VITAMINS W/ FOLIC ACID TABLET (FP) PO SCH (09:44)
[2019-04-08] MEDS: ASPIRIN COATED 81 MG TABLET.EC PO SCH (09:44)
[2019-04-08] MEDS: FOLIC ACID 1 MG TABLET (FP) PO SCH (09:44)
[2019-04-08] MEDS: BUDESONIDE/FORMETEROL FUMARATE 160/4.5 mcg INHALER IH SCH ×2 (09:45→21:05)
[2019-04-08] MEDS: LIDOCAINE 5% TOPICAL PATCH TP SCH ×2 (09:45)
[2019-04-08] MEDS: amLODIPine BESYLATE 5 MG TABLET (FP) PO SCH (09:47)
[2019-04-08] MEDS: THIAMINE HCL 100 MG TABLET (FP) PO SCH (21:02)
[2019-04-08] MEDS: MONTELUKAST NA 10 MG TABLET PO SCH (21:02)
[2019-04-08] MEDS: ROSUVASTATIN CA 10 MG TABLET (FP) PO SCH (21:02)
[2019-04-08] MEDS: LIDOCAINE PATCH REMOVAL MC SCH (21:04)
[2019-04-09] MEDS: LEVOTHYROXINE 200 MCG, LEVOTHYROXINE 50 MCG PO SCH (06:24)
[2019-04-09] MEDS: IBUPROFEN 600 MG TABLET (FP) PO PRN ×2 (06:25→21:08)
[2019-04-09] MEDS: METHOCARBAMOL 500 MG TABLET PO PRN ×2 (06:26→21:08)
[2019-04-09] MEDS: ASPIRIN COATED 81 MG TABLET.EC PO SCH (09:48)
[2019-04-09] MEDS: CARVEDILOL 3.125 MG TABLET (FP) PO SCH ×2 (09:48→21:05)
[2019-04-09] MEDS: FOLIC ACID 1 MG TABLET (FP) PO SCH (09:48)
[2019-04-09] MEDS: amLODIPine BESYLATE 5 MG TABLET (FP) PO SCH (09:48)
[2019-04-09] MEDS: PRENATAL VITAMINS W/ FOLIC ACID TABLET (FP) PO SCH (09:48)
[2019-04-09] MEDS: PANTOPRAZOLE 40 MG TABLET (FP) PO SCH (09:48)
[2019-04-09] MEDS: ALLOPURINOL 100 MG TABLET (FP) PO SCH (09:48)
[2019-04-09] MEDS: SERTRALINE HCL 25 MG TABLET (FP) PO SCH (09:49)
[2019-04-09] MEDS: LIDOCAINE 5% TOPICAL PATCH TP SCH ×2 (09:49→09:50)
[2019-04-09] MEDS: FUROSEMIDE 40 MG TABLET (FP) PO SCH (09:49)
[2019-04-09] MEDS: BUDESONIDE/FORMETEROL FUMARATE 160/4.5 mcg INHALER IH SCH ×2 (09:50→21:06)
--- NOTE | 2019-04-09 14:36 | PN ---
S Progress Note Note: Patient is scheduled for discharge tomorrow. Script for 30 days supply of Zoloft 25 mg/day will be electronically transmitted to [facility] at [address] [place], [place] [id number]
[2019-04-09] MEDS: ROSUVASTATIN CA 10 MG TABLET (FP) PO SCH (21:05)
[2019-04-09] MEDS: MONTELUKAST NA 10 MG TABLET PO SCH (21:05)
[2019-04-09] MEDS: THIAMINE HCL 100 MG TABLET (FP) PO SCH (21:05)
[2019-04-09] MEDS: LIDOCAINE PATCH REMOVAL MC SCH (21:06)
[2019-04-10] MEDS: METHOCARBAMOL 500 MG TABLET PO PRN (06:12)
[2019-04-10] MEDS: IBUPROFEN 600 MG TABLET (FP) PO PRN (06:12)
[2019-04-10] MEDS: LEVOTHYROXINE 200 MCG, LEVOTHYROXINE 50 MCG PO SCH (06:12)
[2019-04-10 06:38] VITALS: TEMP 98.9
[2019-04-10] MEDS: CARVEDILOL 3.125 MG TABLET (FP) PO SCH (10:14)
[2019-04-10] MEDS: amLODIPine BESYLATE 5 MG TABLET (FP) PO SCH (10:14)
[2019-04-10] MEDS: ALLOPURINOL 100 MG TABLET (FP) PO SCH (10:14)
[2019-04-10] MEDS: PRENATAL VITAMINS W/ FOLIC ACID TABLET (FP) PO SCH (10:14)
[2019-04-10] MEDS: FOLIC ACID 1 MG TABLET (FP) PO SCH (10:14)
[2019-04-10] MEDS: LIDOCAINE 5% TOPICAL PATCH TP SCH ×2 (10:15)
[2019-04-10] MEDS: PANTOPRAZOLE 40 MG TABLET (FP) PO SCH (10:15)
[2019-04-10] MEDS: BUDESONIDE/FORMETEROL FUMARATE 160/4.5 mcg INHALER IH SCH (10:15)
[2019-04-10] MEDS: SERTRALINE HCL 25 MG TABLET (FP) PO SCH (10:15)
[2019-04-10] MEDS: ASPIRIN COATED 81 MG TABLET.EC PO SCH (10:15)
[2019-04-10] MEDS: FUROSEMIDE 40 MG TABLET (FP) PO SCH (10:18)
[2019-04-10 11:21] VITALS: BP 147/74; PULSE 73
--- NOTE | 2019-04-10 12:42 | PN ---
[facility] Progress Note (SOAP) Subjective: PT COMPLETED REHAB AND DISCHARGED TODAY. PT MET WITH COUNSELLING AND HAS BEEN REFERRED TO [facility] AND AWAITS BED FOR [facility] AFTER[facility]. 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 PT IS ALERT O X 3. DENIES S/H/I. Objective: 04/10/19 12:41 Vital Signs - 24 hr 04/09/19 04/10/19 04/10/19 20:47 00:30 03:30 Temperature Pulse Rate 84 Respiratory 18 18 Rate Blood Pressure 145/67 04/10/19 04/10/19 04/10/19 06:37 06:38 10:00 Temperature 98.9 F Pulse Rate 83 73 Respiratory 18 18 Rate Blood Pressure 133/69 147/74 Laboratory Tests 03/15/19 03/15/19 03/15/19 07:30 07:30 07:30 WBC 11.1 H RBC 4.31 Hgb 12.4 Hct 37.7 MCV 87.5 MCH 28.8 MCHC 32.9 RDW 15.5 Plt Count 280 MPV 8.3 Sodium 137 Potassium 5.2 H Chloride 102 Carbon Dioxide 31 Anion Gap 4 L BUN 32 H Creatinine 1.2 Est GFR (CKD-EPI)AfAm 74.14 Est GFR (CKD-EPI)NonAf 63.97 Random Glucose 108 H Calcium 9.5 Total Bilirubin 0.4 AST 45 H ALT 117 H Alkaline Phosphatase 107 Total Protein 7.2 Albumin 3.5 RPR Titer Nonreactive Home Medications Medication Instructions Recorded Atrovent Hfa 18 mcg IH DAILY 03/14/19 Benazepril HCl 10 mg PO DAILY 03/14/19 Budesonide/Formeterol Fumarate 2 puff IH BID 03/14/19 [SYMBICORT 160/4.5mcg -] Folic Acid 1 mg PO DAILY 03/14/19 Levothyroxine [Synthroid -] 250 mcg PO DAILY 03/14/19 Thiamine HCl [Vitamin B-1] 100 mg PO DAILY 03/14/19 Sertraline HCl [Zoloft -] 25 mg PO DAILY #30 tablet 04/09/19 Allopurinol [Zyloprim -] 100 mg PO DAILY #14 tablet 04/10/19 Amlodipine Besylate 5 mg PO DAILY #14 tablet 04/10/19 Aspirin [Adult Aspirin Regimen] 81 mg PO DAILY 14 Days tablet. 04/10/19 Carvedilol [Coreg -] 3.125 mg PO BID #14 tablet 04/10/19 Furosemide [Lasix] 40 mg PO DAILY #14 tablet 04/10/19 Montelukast Sodium [Singulair] 10 mg PO HS #14 tablet 04/10/19 Pantoprazole Sodium [Protonix] 40 mg PO DAILY #14 tablet. 04/10/19 Rosuvastatin [Crestor -] 10 mg PO HS #7 tablet 04/10/19 Assessment: 04/10/19 12:42 NAD MEDICALLY STABLE Plan: D/W PT THE NEED TO FOLLOW UP WITH HIS PCP AT [facility] WITHIN 1 WEEK AFTER DISCHARGE FOR MEDICAL MANAGEMENT WITH COPIES OF LAB RESULTS AND LIST OF CURRENT MEDICATIONS FOR REVIEW. FOLLOW UP WITH CD AFTERCARE RECOMMENDED.
== END 2019-04-10 10:05 | disposition home or self-care (01) | DRG 895 ==
LOC: YASAS 13:28 → Y5N 15:29
PROVIDERS: ADMIT Neuromusculoskeletal Medicine & OMM; ATTEND Neuromusculoskeletal Medicine & OMM
PROC: HZ42ZZZ Group Counseling for Substance Abuse Treatment, Cognitive-Behavioral (ICD-10-PCS; principal; 2019-03-14)
DX: F10.20 Alcohol dependence, uncomplicated (principal); Z68.41 Body mass index [BMI] 40.0-44.9, adult; F17.210 Nicotine dependence, cigarettes, uncomplicated; F32.9 Major depressive disorder, single episode, unspecified; F43.10 Post-traumatic stress disorder, unspecified; F19.24 Other psychoactive substance dependence with psychoactive substance-induced mood disorder; I10 Essential (primary) hypertension; D57.3 Sickle-cell trait; M54.5 Low back pain; G89.29 Other chronic pain; R00.0 Tachycardia, unspecified; I87.2 Venous insufficiency (chronic) (peripheral); I83.812 Varicose veins of left lower extremity with pain; R60.0 Localized edema; M79.604 Pain in right leg; M79.605 Pain in left leg; I51.7 Cardiomegaly; M10.9 Gout, unspecified; E89.0 Postprocedural hypothyroidism; E66.9 Obesity, unspecified
CPT/HCPCS: 36415; 80053; 85027; 86593